=== PATIENT | female | born 1970 | race Caucasian/White ===

== ENCOUNTER → 2018-12-11 11:02 | Outpatient (CLI) | payer OTHER, SELFPAY ==
--- NOTE | 2018-12-11 11:35 | RAD_ITS ---
STUDY: X-RAY CHEST REASON FOR EXAM: Female, 48 years old. History of kidney cancer, nodules reportedly seen on prior x-rays TECHNIQUE: PA and lateral views of the chest. COMPARISON: Prior comparison studies are not available for review at this time. FINDINGS: Nodule projecting over the anterior right third rib measures approximately 8.5 mm. There is also a tiny nodule projecting over the anterior left second rib measuring 4-5 mm. There is no demonstrated pleural abnormality. Normal size heart. Normal mediastinum and yaquelin. Normal visualized pulmonary arteries. Normal visualized aortic arch and descending thoracic aorta. Normal visualized thoracic spine. Normal visualized ribs, clavicles, and shoulders. Cholecystectomy clips are noted. RAD/Chest PA and Lateral IMPRESSION: 1. Bilateral pulmonary nodules. No comparison study. Recommend correlating with prior imaging studies and/or additional evaluation with chest CT. Electronically Signed: Kam Siegel MD at 9:53 EDT , Service support ,
== END ==
PROVIDERS: Family Provider Family Medicine; PCP Family Medicine
DX: C64.9 Malignant neoplasm of unspecified kidney, except renal pelvis (principal)
CPT/HCPCS: 71046